=== PATIENT | female | born 1980 | race American Indian/Alaskan Native ===

== ENCOUNTER 2017-06-14 05:47 | Day surgery (SDC) | payer MEDICAID ==
[2017-06-14 07:29] VITALS: BP 162/89
[2017-06-14] MEDS ORDERED: HURRICAINE ONE 20% TOPICAL SPRAY MM (07:46)
[2017-06-14] MEDS ORDERED: WATER FOR IRRIG STERILE IR ONE (07:46)
--- NOTE | 2017-06-14 07:56 | Operative Report ---
Operative Report Operative Report: OPERATIVE REPORT - EGD DATE 06/14/2017 SURGERY: Upper endoscopy. SURGEON: Dr. Zhao ELECTRIC PLATER: Arnaldo Leal D.O PRE OP DX: dyspepsia POST OP DX:xxxxx TYPE OF ANESTHESIA: MAC. ESTIMATED BLOOD LOSS: None. COMPLICATIONS: None. SPECIMENS REMOVED: None. FINDINGS: 1. Small hiatal hernia. 2. Otherwise, normal esophagus, stomach and first portion of duodenum. INDICATIONS:INDICATION FOR PROCEDURE: Patient is a 36-year-old female with a long history of morbid obesity. She is planned to have a weight loss procedure and is here for preoperative planning EGD. PROCEDURE DETAILS: After consent was reviewed, patient was taken back to the operating room where patient was placed in the left lateral decubitus position and a bite block was placed in the mouth. After a time-out was called, MAC anesthesia was initiated. I then passed the endoscope into her oropharynx, into her esophagus, visualized the entire esophagus, which was all within normal limits. I then visualized the stomach and the first portion of the duodenum and there were no abnormalities I could clearly visualize. I then retroflexed the scope in the stomach and visualized the hiatus and I could see a small hiatal hernia. I then desufflated the stomach and removed the endoscope. Patient tolerated procedure well and was transferred to recovery room in good and stable condition.
[2017-06-14] MEDS ORDERED: NACL 0.9% 1000 ML 1,000 ML IV SCH (08:00)
--- NOTE | 2017-06-14 08:05 | Anesthesia Day of Surgery ---
Anesthesia Day of Surgery - Day of Surgery Patient Examined: Yes Patient H&P Reviewed: Yes Patient is NPO: Yes Beta Blockers: No Cardiac Clearance: No Pulmonary Clearance: No
--- NOTE | 2017-06-14 08:05 | Discharge Summary ---
Providers - Providers Attending physician: RUSTY SIMON Primary care physician: EVAN LEHMNA Exam - Constitutional Vitals: Temp Pulse Resp BP Pulse Ox 98.5 F 92 H 13 162/89 98 06/14/17 07:31 06/14/17 07:31 06/14/17 07:31 06/14/17 07:31 06/14/17 07:31 Plan Follow up with: EVAN LEHMAN III, FIELD CONSULTANT-BC [Primary Care Provider] - 7 Days
[2017-06-14] MEDS ORDERED: XYLOCAINE 2% INFILTRATI ONE (08:06)
[2017-06-14] MEDS ORDERED: VERSED ONE (08:06)
[2017-06-14] MEDS ORDERED: DIPRIVAN 10 MG/ML IV ONE (08:06)
--- NOTE | 2017-06-14 08:06 | Anesthesia Consultation ---
Anesthesia Consult and Med Hx - Airway Anesthetic Teeth Evaluation: Dentures ROM Head & Neck: Adequate Mental/Hyoid Distance: Inadequate Mallampati Class: Class III Intubation Access Assessment: Possibly Difficult - Pulmonary Exam CTA: Yes - Cardiac Exam Cardiac Exam: No Murmur - Pre-Operative Health Status ASA Pre-Surgery Classification: ASA3 Proposed Anesthetic Plan: MAC - Pulmonary Hx Smoking: No Hx Asthma: Yes Hx Respiratory Symptoms: No SOB: No COPD: No Hx Sleep Apnea: Yes - Cardiovascular System Hx Hypertension: Yes Hx Coronary Artery Disease: No Hx Heart Attack/AMI: No Hx Angina: No Hx Percutaneous Transluminal Coronary Angioplasty (PTCA): No Hx Cardia Arrhythmia: No Hx Pacemaker: No Hx Internal Defibrillator: No Hx Valvular Heart Disease: No Hx Heart Murmur: No Hx Peripheral Vascular Disease: No - Central Nervous System Hx Neuromuscular Disorder: No Hx Seizures: No CVA: No Hx Back Pain: No Hx Psychiatric Problems: No - Gastrointestinal Hx Ulcer: No Hx Gastroesophageal Reflux Disease: No - Endocrine Hx Renal Disease: No Hx End Stage Renal Disease: No Hx Cirrhosis: No Hx Liver Disease: No Hx Insulin Dependent Diabetes: No Hx Non-Insulin Dependent Diabetes: No Hx Thyroid Disease: No Hx Hypothyroidism: No Hx Hyperthyroidism: No - Hematic Hx Anemia: No Hx Sickle Cell Disease: No - Other Systems Hx Alcohol Use: No Hx Substance Use: No Hx Cancer: No Hx Obesity: No
[2017-06-14] MEDS ORDERED: XYLOCAINE MPF 2% ONE (09:00)
--- NOTE | 2017-06-14 14:21 | Post Anesthesia Evaluation ---
- Post Anesthesia Evaluation Patient Participated: Yes Airway Patent: Yes Stable Respiratory Function: Yes Nausea/Vomiting: No Temp > 96.8F: Yes Pain Manageable: Yes Adequeate Hydration: Yes Anesthesia Complications: No
== END 2017-06-14 05:48 | disposition home or self-care (01) ==
LOC: GIO 05:47
PROVIDERS: ATTEND Specialist
PROC: 0DJ08ZZ Inspection of Upper Intestinal Tract, Via Natural or Artificial Opening Endoscopic (ICD-10-PCS; principal; 2017-06-14)
DX: K21.0 Gastro-esophageal reflux disease with esophagitis (principal); K44.9 Diaphragmatic hernia without obstruction or gangrene; I10 Essential (primary) hypertension; J45.909 Unspecified asthma, uncomplicated; G47.30 Sleep apnea, unspecified; E78.00 Pure hypercholesterolemia, unspecified; E66.01 Morbid (severe) obesity due to excess calories; F32.9 Major depressive disorder, single episode, unspecified; Z68.43 Body mass index [BMI] 50.0-59.9, adult; Z88.1 Allergy status to other antibiotic agents; Z91.040 Latex allergy status; Z91.018 Allergy to other foods
CPT/HCPCS: 43235; 81025; J2250; J2704; J7030

== ENCOUNTER 2018-05-19 22:51 | Emergency (ER) | payer MEDICAID ==
--- NOTE | 2018-05-20 01:26 | XRay Report ---
PROCEDURE: XR FOOT 2V RT TECHNIQUE: Right foot radiographs, AP and lateral views. HISTORY: pain 3rd and 4th toes COMPARISONS: None . FINDINGS: Fracture (s) and/or Dislocation(s): None . Alignment: Normal . Joint space(s): Normal . Soft tissues: Normal . Bone mineralization: Normal . Foreign bodies: None . Calcaneal spurring: None . IMPRESSION: Normal Examination . This document is electronically signed by Liliay Lind DO., May 20 2018 01:24:36 AM ET
[2018-05-20 03:28] VITALS: BP 124/53
--- NOTE | 2018-05-20 04:18 | Emergency Department Report ---
ED Lower Extremity HPI - General Chief Complaint: Extremity Injury, Lower Stated Complaint: POSS BROKEN TOE/PAIN Time Seen by Provider: 05/20/18 04:13 Source: patient Mode of arrival: Ambulatory Limitations: No Limitations - History of Present Illness Initial Comments: Patient is a 37-year-old -[place] female presents for right toe pain states she was sitting on the floor her child.. Hyperextended her toe causing some pain and mild bleeding there is no visible wound or nail avulsion on elevation pt remains ambulatory with minimal gait disturbance pain is 4/10 aching pain controlled by rest. MD Complaint: foot injury Onset/Timin -: hour(s) Injury: Foot: Right Type of Injury: hyperextension Place: home Severity: moderate Severity scale (0 -10): 5 Improves With: rest Worsens With: weight bearing, movement, palpation Context: direct blow Associated Symptoms: swelling, tingling, ambulatory. denies: snap/pop sensation, numbness - Related Data Home Medications Medication Instructions Recorded Confirmed Last Taken Atenolol/Chlorthalidone 25 - 50 mg PO DAILY 06/21/17 06/21/17 06/20/17 Previous Rx's Medication Instructions Recorded Last Taken Type Cyclobenzaprine [Flexeril] 10 mg PO TID PRN #30 tablet 05/20/18 Unknown Rx Menthol/Camphor [[employer] 1 applicatio TP QID PRN #40 05/20/18 Unknown Rx Ointment] oint...g. Naproxen 500 mg PO BID PRN #30 tablet 05/20/18 Unknown Rx Allergies Allergy/AdvReac Type Severity Reaction Status Date / Time amoxicillin AdvReac Hives Verified 06/14/17 07:14 banana AdvReac Itching Verified 06/14/17 07:14 latex AdvReac Hives Verified 06/14/17 07:42 ED Review of Systems ROS: Stated complaint: POSS BROKEN TOE/PAIN Other details as noted in HPI Constitutional: no symptoms reported Eyes: denies: eye pain, eye discharge, vision change ENT: denies: ear pain, throat pain Respiratory: denies: cough, shortness of breath, wheezing Cardiovascular: denies: chest pain, palpitations Endocrine: no symptoms reported Gastrointestinal: denies: abdominal pain, nausea, diarrhea Genitourinary: denies: urgency, dysuria, discharge Musculoskeletal: arthralgia, other (foot pain aching) Skin: denies: rash, lesions Neurological: denies: headache, weakness, paresthesias Psychiatric: denies: anxiety, depression Hematological/Lymphatic: denies: easy bleeding, easy bruising ED Past Medical Hx - Past Medical History Previous Medical History?: Yes Hx Hypertension: Yes Hx Heart Attack/AMI: No Hx Liver Disease: No Hx Renal Disease: No Hx Sickle Cell Disease: No Hx Seizures: No Hx Asthma: Yes Hx COPD: No - Surgical History Past Surgical History?: Yes Hx Pacemaker: No Hx Internal Defibrillator: No Additional Surgical History: Gastric Bypass Surgery - Social History Smoking Status: Never Smoker Substance Use Type: None - Medications Home Medications: Home Medications Medication Instructions Recorded Confirmed Last Taken Type Atenolol/Chlorthalidone 25 - 50 mg PO DAILY 06/21/17 06/21/17 06/20/17 History Cyclobenzaprine [Flexeril] 10 mg PO TID PRN #30 tablet 05/20/18 Unknown Rx Menthol/Camphor [[employer] 1 applicatio TP QID PRN #40 05/20/18 Unknown Rx Ointment] oint...g. Naproxen 500 mg PO BID PRN #30 tablet 05/20/18 Unknown Rx ED Physical Exam - General Limitations: No Limitations General appearance: alert, in no apparent distress - Head Head exam: Present: atraumatic, normocephalic - Eye Eye exam: Present: normal appearance, PERRL, EOMI, conjunctival injection Pupils: Present: normal accommodation - ENT ENT exam: Present: mucous membranes moist, TM's normal bilaterally, normal external ear exam. Absent: normal orophraynx - Neck Neck exam: Present: normal inspection, full ROM. Absent: tenderness, meningismus, lymphadenopathy, thyromegaly - Respiratory Respiratory exam: Present: normal lung sounds bilaterally. Absent: respiratory distress, wheezes, stridor, chest wall tenderness - Cardiovascular Cardiovascular Exam: Present: regular rate, normal rhythm, normal heart sounds. Absent: systolic murmur, diastolic murmur, rubs, gallop - GI/Abdominal GI/Abdominal exam: Present: soft, normal bowel sounds. Absent: tenderness, guarding, rebound, rigid, bruit, hernia - Rectal Rectal exam: Present: deferred - Extremities Exam Extremities exam: Present: normal inspection, full ROM, normal capillary refill, calf tenderness. Absent: tenderness, pedal edema, joint swelling - Back Exam Back exam: Present: normal inspection, tenderness, rash noted, other. Absent: CVA tenderness (R), CVA tenderness (L), muscle spasm - Neurological Exam Neurological exam: Present: alert, oriented X3, CN II-XII intact, normal gait, reflexes normal - Psychiatric Psychiatric exam: Present: normal affect, normal mood - Skin Skin exam: Present: warm, dry, intact, normal color. Absent: rash ED Course Vital Signs 05/20/18 05/20/18 00:12 03:26 Temperature 98.1 F 98.1 F Pulse Rate 79 74 Respiratory 16 20 Rate Blood Pressure 134/84 Blood Pressure 124/53 [Right] O2 Sat by Pulse 97 98 Oximetry ED Lower Extremity MDM - Radiology Data Radiology results: report reviewed, image reviewed Ordering Physician: KANNAN PERES MD Date of Service: 05/20/18 Procedure(s): XR foot 2V RT Accession Number(s): [id number] cc: ED MD JA Fluoro Time In Minutes: PROCEDURE: XR FOOT 2V RT TECHNIQUE: Right foot radiographs, AP and lateral views. HISTORY: pain 3rd and 4th toes COMPARISONS: None . FINDINGS: Fracture (s) and/or Dislocation(s): None . Alignment: Normal . Joint space(s): Normal . Soft tissues: Normal . Bone mineralization: Normal . Foreign bodies: None . Calcaneal spurring: None . IMPRESSION: Normal Examination . This document is electronically signed by Liliya Velasquez DO., May 20 2018 01:24:36 AM ET Transcribed By: [facility] Dictated By: LILIYA VELASQUEZ MD Electronically Authenticated By: LILIYA VELASQUEZ MD Signed Date/Time: 05/20/18125 DD/ TD/TT: 05/20/1836 - Medical Decision Making X-ray normal there is no fracture there is no soft tissue abnormality plan Benadryl tape toe after she received a prescription for NSAIDs for pain patient will follow up with orthopedics in 2 days patient verbalizes agreement and understanding on same patient DC home in stable condition at this time Critical care attestation.: If time is entered above; I have spent that time in minutes in the direct care of this critically ill patient, excluding procedure time. ED Disposition Clinical Impression: Sprain of fourth toe of right foot Qualifiers: Encounter type: initial encounter Qualified Code(s): S93.504A - Unspecified sprain of right lesser toe(s), initial encounter Disposition: TO HOME OR SELFCARE Is pt being admited?: No Does the pt Need Aspirin: No Condition: Stable Instructions: Arthralgia (ED), Foot Sprain (ED) Prescriptions: Cyclobenzaprine [Flexeril] 10 mg PO TID PRN #30 tablet PRN Reason: Muscle Spasm Naproxen 500 mg PO BID PRN #30 tablet PRN Reason: pain Menthol/Camphor [[employer] Ointment] 1 applicatio TP QID PRN #40 oint...g. PRN Reason: pain Referrals: EVAN LEHMAN III, ICT TRAINER-BC [Primary Care Provider] - 3-5 Days Forms: Work/School Release Form(ED) Time of Disposition: 04:37
== END 2018-05-20 04:40 | disposition home or self-care (01) ==
LOC: ED 22:51
DX: S93.504A Unspecified sprain of right lesser toe(s), initial encounter (principal); I10 Essential (primary) hypertension; J45.909 Unspecified asthma, uncomplicated; Z88.1 Allergy status to other antibiotic agents; Z91.018 Allergy to other foods; Z91.040 Latex allergy status; X58.XXXA Exposure to other specified factors, initial encounter; Y93.89 Activity, other specified; Y92.009 Unspecified place in unspecified non-institutional (private) residence as the place of occurrence of the external cause; Y99.8 Other external cause status

== ENCOUNTER 2021-02-04 11:14 | Emergency (ER) | payer MEDICAID ==
[2021-02-04] MEDS ORDERED: traMADol 50 MG TAB PO ONE (12:11)
[2021-02-04] MEDS ORDERED: KETOROLAC 60 MG/2 ML INJ IM ONE (12:11)
[2021-02-04 12:13] VITALS: BP 124/72
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
--- NOTE | 2021-02-04 13:35 | Cat Scan Report ---
. CT cervical spine wo con INDICATION: neck injury/pain/crack noise after injury. TECHNIQUE: Axial CT images of the cervical spine were obtained. Sagittal and coronal reformatted images were pro duced. All CT scans at this location are performed using CT dose reduction for ALARA by means of auto mated exposure control. COMPARISON: None available. FINDINGS: ALIGNMENT: Minimal anterolisthesis of C4 on C5. VERTEBRAE: No fracture. Vertebral body heights are preserved. C1 and C2 are congruent. SPONDYLOSIS: No significant spondylosis. SOFT TISSUES: No significant soft tissue abnormality. ADDITIONAL FINDINGS: No significant additional findings. IMPRESSION: 1. No fracture of the cervical spine. Signer Name: Juliano Ross MD Signed: 02/04/2021 1:30 PM Workstation Name: [id number]
== END 2021-02-04 14:05 | disposition home or self-care (01) ==
LOC: ED 11:14
DX: S13.8XXA Sprain of joints and ligaments of other parts of neck, initial encounter (principal); I10 Essential (primary) hypertension; J45.909 Unspecified asthma, uncomplicated; Z91.018 Allergy to other foods; Z91.040 Latex allergy status; Z88.1 Allergy status to other antibiotic agents; Z79.899 Other long term (current) drug therapy; Y04.8XXA Assault by other bodily force, initial encounter; Y93.89 Activity, other specified; Y92.89 Other specified places as the place of occurrence of the external cause; Y99.8 Other external cause status
CPT/HCPCS: 72125; 96372; 99283; J1885

== ENCOUNTER 2021-02-05 10:53 | Emergency (ER) | payer MEDICAID ==
[2021-02-05] MEDS ORDERED: SODIUM CHLORIDE 0.9% 1000 ML 1,000 ML IV ONE (11:56)
[2021-02-05] MEDS ORDERED: ONDANSETRON 4 MG/2 ML INJ IV ONE (11:56)
[2021-02-05] MEDS ORDERED: PANTOPRAZOLE 40 MG INJ IV ONE (11:56)
--- NOTE | 2021-02-05 12:00 | Emergency Department Report ---
HPI - General Chief Complaint: Nausea/Vomiting/Diarrhea Time Seen by Provider: 02/05/21 11:48 - HPI HPI: 40-year-old -[place] female presents to the emergency department with complaint of upper abdominal pain, nausea and vomiting, and vomiting blood since this morning. The patient was seen here yesterday in regards to neck pain after "play fighting" and she was diagnosed with a cervical sprain and discharged home with tramadol, ketorolac and Robaxin. Patient says that the abdominal pain started yesterday evening after she started taking the medication, but the nausea, vomiting and hematemesis started this morning. Currently the patient denies being nauseous but says that she feels lightheaded. She denies any past medical history. No recent travel or sick contacts at home. ED Past Medical Hx - Past Medical History Hx Hypertension: Yes Hx Heart Attack/AMI: No Hx Liver Disease: No Hx Renal Disease: No Hx Sickle Cell Disease: No Hx Seizures: No Hx Asthma: Yes Hx COPD: No - Surgical History Hx Pacemaker: No Hx Internal Defibrillator: No Additional Surgical History: Gastric Bypass Surgery - Social History Smoking Status: Never Smoker Substance Use Type: None - Medications Home Medications: Home Medications Medication Instructions Recorded Confirmed Last Taken Type Atenolol/Chlorthalidone 25 - 50 mg PO DAILY 06/21/17 06/21/17 06/20/17 History methOCARBAMOL [Robaxin TAB] 750 mg PO Q8H PRN #30 tablet 02/04/21 Unknown Rx traMADoL [Ultram] 50 mg PO Q4HR PRN #12 tablet 02/04/21 Unknown Rx Omeprazole 20 mg PO QDAY #15 capsule. 02/05/21 Unknown Rx ED Review of Systems ROS: Stated complaint: VOMITING UP BLOOD Other details as noted in HPI Comment: All other systems reviewed and negative Constitutional: denies: chills, fever Eyes: denies: eye pain, vision change ENT: denies: ear pain, throat pain Respiratory: denies: cough, shortness of breath Cardiovascular: denies: chest pain, palpitations Gastrointestinal: abdominal pain, nausea, vomiting, hematemesis Genitourinary: denies: dysuria, discharge Musculoskeletal: denies: back pain, arthralgia Skin: denies: rash, lesions Neurological: denies: headache, weakness Physical Exam - Physical Exam Vital Signs: Vital Signs 02/05/21 11:49 Temperature 98.6 F Pulse Rate 84 Respiratory 18 Rate O2 Sat by Pulse 100 Oximetry Physical Exam: GENERAL: The patient is well-developed well-nourished. HENT: Normocephalic. Atraumatic. Patient has moist mucous membranes. EYES: Extraocular motions are intact. NECK: Supple. Trachea is midline. CHEST/LUNGS: Clear to auscultation. There is no respiratory distress noted. HEART/CARDIOVASCULAR: Regular. There is no tachycardia. There is no murmur. ABDOMEN: Abdomen is soft. Epigastric and left upper quadrant tenderness to palpation. No guarding. Patient has normal bowel sounds. There is no abdominal distention. SKIN: Skin is warm and dry. NEURO: The patient is awake, alert, and oriented. The patient is cooperative. The patient has no focal neurologic deficits. Normal speech. MUSCULOSKELETAL: There is no tenderness or deformity. There is no limitation range of motion. ED Course Vital Signs 02/05/21 11:49 Temperature 98.6 F Pulse Rate 84 Respiratory 18 Rate O2 Sat by Pulse 100 Oximetry ED Medical Decision Making - Lab Data Result diagrams: 02/05/21 12:16 02/05/21 12:16 Lab Results 02/05/21 02/05/21 02/05/21 Range/Units 12:16 12:16 12:16 WBC 7.9 (4.5-11.0) K/mm3 RBC 4.94 (3.65-5.03) M/mm3 Hgb 10.2 (10.1-14.3) gm/dl Hct 35.6 (30.3-42.9) % MCV 72 L (79-97) fl MCH 21 L (28-32) pg MCHC 29 L (30-34) % RDW 19.0 H (13.2-15.2) % Plt Count 343 (140-440) K/mm3 Lymph % (Auto) 5.7 L (13.4-35.0) % Luna % (Auto) 4.1 (0.0-7.3) % Eos % (Auto) 0.3 (0.0-4.3) % Baso % (Auto) 0.3 (0.0-1.8) % Lymph # (Auto) 0.5 L (1.2-5.4) K/mm3 Luna # (Auto) 0.3 (0.0-0.8) K/mm3 Eos # (Auto) 0.0 (0.0-0.4) K/mm3 Baso # (Auto) 0.0 (0.0-0.1) K/mm3 Seg Neutrophils % 89.6 H (40.0-70.0) % Seg Neutrophils # 7.0 (1.8-7.7) K/mm3 PT (12.2-14.9) Sec. INR (0.87-1.13) APTT (24.2-36.6) Sec. Sodium 137 (137-145) mmol/L Potassium 3.7 (3.6-5.0) mmol/L Chloride 97.7 L (98-107) mmol/L Carbon Dioxide 24 (22-30) mmol/L Anion Gap 19 mmol/L BUN 12 (7-17) mg/dL Creatinine 0.6 (0.6-1.2) mg/dL Estimated GFR > 60 ml/min BUN/Creatinine Ratio 20 % Glucose 102 H (65-100) mg/dL Calcium 8.9 (8.4-10.2) mg/dL Total Bilirubin (0.1-1.2) mg/dL Direct Bilirubin (0-0.2) mg/dL Indirect Bilirubin mg/dL AST (5-40) units/L ALT (7-56) units/L Alkaline Phosphatase (35-129) units/L Total Protein (6.3-8.2) g/dL Albumin (3.9-5) g/dL Albumin/Globulin Ratio % Lipase 43 (13-60) units/L HCG, Qual Negative (Negative) 02/05/21 02/05/21 Range/Units 12:16 12:16 WBC (4.5-11.0) K/mm3 RBC (3.65-5.03) M/mm3 Hgb (10.1-14.3) gm/dl Hct (30.3-42.9) % MCV (79-97) fl MCH (28-32) pg MCHC (30-34) % RDW (13.2-15.2) % Plt Count (140-440) K/mm3 Lymph % (Auto) (13.4-35.0) % Luna % (Auto) (0.0-7.3) % Eos % (Auto) (0.0-4.3) % Baso % (Auto) (0.0-1.8) % Lymph # (Auto) (1.2-5.4) K/mm3 Luna # (Auto) (0.0-0.8) K/mm3 Eos # (Auto) (0.0-0.4) K/mm3 Baso # (Auto) (0.0-0.1) K/mm3 Seg Neutrophils % (40.0-70.0) % Seg Neutrophils # (1.8-7.7) K/mm3 PT 13.5 (12.2-14.9) Sec. INR 0.93 (0.87-1.13) APTT 29.7 (24.2-36.6) Sec. Sodium (137-145) mmol/L Potassium (3.6-5.0) mmol/L Chloride (98-107) mmol/L Carbon Dioxide (22-30) mmol/L Anion Gap mmol/L BUN (7-17) mg/dL Creatinine (0.6-1.2) mg/dL Estimated GFR ml/min BUN/Creatinine Ratio % Glucose (65-100) mg/dL Calcium (8.4-10.2) mg/dL Total Bilirubin 0.30 (0.1-1.2) mg/dL Direct Bilirubin < 0.2 (0-0.2) mg/dL Indirect Bilirubin 0.1 mg/dL AST 20 (5-40) units/L ALT 9 (7-56) units/L Alkaline Phosphatase 93 (35-129) units/L Total Protein 7.5 (6.3-8.2) g/dL Albumin 4.0 (3.9-5) g/dL Albumin/Globulin Ratio 1.1 % Lipase (13-60) units/L HCG, Qual (Negative) - Radiology Data Radiology results: image reviewed interpreted by me: Chest x-ray does not show any acute process. There are no pleural effusions, obvious pneumonia and there is no pneumothorax. No widened mediastinum Abdominal x-ray shows nonspecific nonobstructive bowel gas. No free air. - Medical Decision Making This patient presents to the emergency department with a complaint of abdominal pain, nausea, vomiting and hematemesis. On examination there is some mild abdominal tenderness to palpation in the epigastrium, but otherwise the abdomen is soft, nondistended and nontoxic in appearance. Acute abdominal series does not show any acute process including signs of obstruction or free air. Labs have been mostly unremarkable including CMP, CBC, lipase, coags, and the patient is not . Hemoglobin stable at about 10. Patient was given some IV fluid resuscitation, PPI and antiemetic. She was reevaluated multiple times over multiple hours and is feeling improved. There has been no further nausea, vomiting or hematemesis while in the emergency d epartment. Vital signs reassuring including being afebrile. For these reasons patient appears safe for discharge home at this time. She has been instructed to follow-up with primary care and gastroenterology. She has been given a prescription for an antiemetic and PPI. Critical Care Time: No Critical care attestation.: If time is entered above; I have spent that time in minutes in the direct care of this critically ill patient, excluding procedure time. ED Disposition Clinical Impression: Abdominal pain Qualifiers: Abdominal location: upper abdomen, unspecified Qualified Code(s): R10.10 - Upper abdominal pain, unspecified Nausea & vomiting Qualifiers: Vomiting type: unspecified Qualified Code(s): R11.2 - Nausea with vomiting, unspecified Hematemesis Qualifiers: Nausea presence: with nausea Qualified Code(s): K92.0 - Hematemesis Disposition: 01 HOME / SELF CARE / HOMELESS Is pt being admited?: No Condition: Stable Instructions: Hematemesis, Abdominal Pain, Adult, Nausea and Vomiting, Adult Additional Instructions: Please follow-up with a primary care physician in the next few days. I am giving you a referral for [facility] to follow-up regarding your abdominal pain and the blood seen in the vomit. Please stop taking the ketorolac/Toradol. Try to stay away from foods that are spicy, tomato-based, acidic, and please try to avoid alcohol. I am giving you a referral for an orthopedic group, [facility], to follow-up regarding your cervical sprain (neck pain). Return to the emergency department with any worsening of your symptoms, new or concerning symptoms not addressed during this current emergency department visit, or with any acute distress. Prescriptions: Omeprazole 20 mg PO QDAY #15 capsule. Referrals: MICHAEL ESPARZA MD [Primary Care Provider] - 3-5 Days [facility] [Provider Group] - 3-5 Days [facility] [Provider Group] - 3-5 Days Time of Disposition: 15:11
[2021-02-05 12:50] LABS: Basophils % (Auto) 0.3 % (0.0-1.8); Eosinophils % (Auto) 0.3 % (0.0-4.3); Lymphocytes # (Auto) 0.5 K/mm3 (1.2-5.4); Lymphocytes % (Auto) 5.7 % (13.4-35.0); Mean Corpuscular HGB Conc 29 % (30-34); Mean Corpuscular Volume 72 fl (79-97); Monocytes # (Auto) 0.3 K/mm3 (0.0-0.8); Monocytes % (Auto) 4.1 % (0.0-7.3); Platelet Count 343 K/mm3 (140-440); Red Blood Count 4.94 M/mm3 (3.65-5.03)
[2021-02-05 12:51] LABS: Hematocrit 35.6 % (30.3-42.9); Hemoglobin 10.2 gm/dl (10.1-14.3)
[2021-02-05 13:00] LABS: INR 0.93 (0.87-1.13)
[2021-02-05 13:01] LABS: Partial Thromboplastin Time 29.7 Sec. (24.2-36.6)
[2021-02-05 13:23] LABS: Alanine Aminotransferase 9 units/L (7-56); Bilirubin,Direct < 0.2 mg/dL (0-0.2)
--- NOTE | 2021-02-05 13:44 | XRay Report ---
ABDOMEN 3 VIEW(S) INDICATION / CLINICAL INFORMATION: Abdominal pain. COMPARISON: None available. FINDINGS: TUBES / LINES: None. BOWEL GAS PATTERN: There is a moderate amount of stool in the colon. I see no evidence of bowel obstr uction or mass effect. FREE AIR / EXTRALUMINAL GAS: None seen. ADDITIONAL FINDINGS: No significant additional findings. CHEST: The heart size and pulmonary vasculature are normal. The lungs are clear. IMPRESSION: No acute abnormality is identified. Signer Name: Joaquim Khan MD Signed: 02/05/2021 1:39 PM Workstation Name: [id number]
[2021-02-05 14:12] VITALS: BP 121/60
[2021-02-05 14:48] LABS: Blood Urea Nitrogen 12 mg/dL (7-17); Calcium 8.9 mg/dL (8.4-10.2); Hemolysis Index 3
[2021-02-05 14:54] LABS: BUN/Creatinine Ratio 20
== END 2021-02-05 15:03 | disposition home or self-care (01) ==
LOC: ED 10:53
DX: R10.10 Upper abdominal pain, unspecified (principal); K92.0 Hematemesis; I10 Essential (primary) hypertension; J45.909 Unspecified asthma, uncomplicated
CPT/HCPCS: 36415; 74022; 80048; 80076; 83690; 84703; 85025; 85610; 85730; 96361; 96374; 96375; 99284; C9113; J2405; J7030; Q0162